=== PATIENT | male | born 1965 | race Caucasian/White ===

== ENCOUNTER 2022-05-05 08:07 | Observation (INO) ==
[2022-05-05] MEDS ORDERED: NS 0.9% 1000 ml BAG 1,000 ML IV ONE (08:37)
[2022-05-05] MEDS ORDERED: Magnesium Hydroxide LIQ 30 ML UDC PO PRN (10:34)
[2022-05-05] MEDS ORDERED: Ondansetron 4 mg VIAL 2 MG/ML 2 ml VIAL IV PRN ×2 (10:34→19:11)
[2022-05-05] MEDS ORDERED: Lactulose 30 ml UDC PO PRN (10:34)
[2022-05-05] MEDS ORDERED: Ondansetron ODT 4 mg TAB 4 MG TAB PO PRN (10:34)
[2022-05-05] MEDS ORDERED: Morphine 2 MG/ML SYRINGE IV PRN (10:40)
[2022-05-05] MEDS ORDERED: ceFAZolin 1 GM ADVAN 1 GM in NS 0.9% 50 ML 50 ML IVPB SCH (11:00)
[2022-05-05 11:34] LABS: ABS Basophils 0.1 10^3/ul (0-0.2); ABS Lymphocytes 0.8 10^3/ul (1.0-4.8); ABS Monocytes 0.4 10^3/ul (0-0.8); ABS Neutrophils 9.6 10^3/ul (1.5-7.7); Eosinophil % 0.3 %; Hematocrit 34 % (42-52); Hemoglobin 11.5 g/dL (14.0-18.0); Lymphocyte % 7.2 %; Mean Corpuscular HGB Conc 34 g/dL (31-36); Mean Corpuscular Hemoglobin 30 pg (27-31); Mean Corpuscular Volume 89 fL (80-94); Mean Platelet Volume 7.9 fL (7.4-10.4); Platelet Count 197 10^3/uL (150-450); Red Blood Count 3.84 10^6 /uL (4.18-5.48); Red Cell Distribution Width 14 % (10-15); White Blood Count 10.9 10^3/uL (3.5-10.8)
[2022-05-05 11:43] LABS: INR 1.23 (0.86-1.15)
[2022-05-05 12:11] LABS: Albumin 4.1 g/dL (3.2-5.2); Albumin/Globulin Ratio 1.6 (1-3); Calcium 8.4 mg/dL (8.6-10.3); Globulin 2.6 g/dL (2-4); Potassium 4.2 mmol/L (3.5-5.0); Total Bilirubin 0.5 mg/dL (0.2-1.0); Total Protein 6.7 g/dL (6.4-8.9); eGFR CKD-EPI 112.5 (>60)
[2022-05-05] MEDS: Lactated Ringers 1000 ml BAG 1,000 ML IV SCH (13:52)
[2022-05-05] MEDS ORDERED: ceFAZolin 2 GM in NS PREMIX 2 GM/100 ML BAG IVPB ONE (15:41)
[2022-05-05] MEDS ORDERED: Dexamethasone IV 4 MG/ML VIAL 1 ml VIAL ONE (16:34)
[2022-05-05] MEDS ORDERED: Propofol 10 MG/ML 20 ML BTL ONE (16:34)
[2022-05-05] MEDS ORDERED: Ondansetron 4 mg VIAL 2 MG/ML 2 ml VIAL ONE (16:34)
[2022-05-05] MEDS ORDERED: Lidocaine 2% PF 5 ML VIAL ONE (16:34)
[2022-05-05] MEDS ORDERED: HYDROmorphone 0.5 MG/0.5 ML SYRINGE ONE (16:35)
[2022-05-05] MEDS ORDERED: Rocuronium 50 mg VIAL 10 mg/ml 5 ml VIAL (50 mg) ONE (16:35)
[2022-05-05] MEDS ORDERED: Bupivacaine 0.25% SDV 30 ML ONE (17:01)
[2022-05-05] MEDS ORDERED: Naloxone 0.4 mg VIAL 0.4 mg/ml 1 ml VIAL IV PRN (19:11)
[2022-05-05] MEDS ORDERED: HYDROmorphone 1 MG/1 ML SYRINGE IV PRN (19:11)
[2022-05-05] MEDS ORDERED: HYDROmorphone 1 MG/1 ML SYRINGE ONE (19:51)
[2022-05-05] MEDS: Magnesium Hydroxide LIQ 30 ML UDC PO SCH (21:26)
[2022-05-06] MEDS: ceFAZolin 1 GM ADVAN 1 GM in NS 0.9% 50 ML 50 ML IVPB SCH ×3 (02:10→17:53)
[2022-05-06 05:15] LABS: Hematocrit 29 % (42-52); Hemoglobin 9.7 g/dL (14.0-18.0); Mean Platelet Volume 8.2 fL (7.4-10.4); Platelet Count 194 10^3/uL (150-450)
[2022-05-06 05:33] LABS: Calcium 8.2 mg/dL (8.6-10.3); Potassium 4.4 mmol/L (3.5-5.0)
[2022-05-06] MEDS: Lactated Ringers 1000 ml BAG 1,000 ML IV SCH (05:51)
[2022-05-06] MEDS ORDERED: Dextrose 50% Syringe 50 ml 25 GM/50 ML SYRINGE IV PUSH PRN (07:58)
[2022-05-06] MEDS: Vitamin THERAPEUTIC TAB PO SCH (08:50)
[2022-05-06] MEDS: Magnesium Hydroxide LIQ 30 ML UDC PO SCH ×2 (08:50→21:56)
[2022-05-06] MEDS: Enoxaparin 30 MG/0.3 ML SYR SUBCUT SCH (12:45)
[2022-05-07 06:20] LABS: Hematocrit 28 % (42-52); Hemoglobin 9.6 g/dL (14.0-18.0); Platelet Count 178 10^3/uL (150-450)
[2022-05-07] MEDS: Magnesium Hydroxide LIQ 30 ML UDC PO SCH ×2 (09:23→21:39)
[2022-05-07] MEDS: Vitamin THERAPEUTIC TAB PO SCH (09:24)
[2022-05-07] MEDS: Enoxaparin 30 MG/0.3 ML SYR SUBCUT SCH (13:17)
[2022-05-08 05:12] LABS: Hematocrit 28 % (42-52); Hemoglobin 9.4 g/dL (14.0-18.0); Mean Platelet Volume 7.7 fL (7.4-10.4); Platelet Count 199 10^3/uL (150-450)
[2022-05-08] MEDS: Vitamin THERAPEUTIC TAB PO SCH (09:42)
[2022-05-08] MEDS: Magnesium Hydroxide LIQ 30 ML UDC PO SCH (09:47)
[2022-05-08] MEDS: Enoxaparin 30 MG/0.3 ML SYR SUBCUT SCH (14:40)
[2022-05-08 16:31] VITALS: BP 144/66
== END 2022-05-08 17:20 | disposition home or self-care (01) ==
LOC: ED 08:07 → EDHOLD 08:07 → SSU 12:32
PROVIDERS: ADMIT Orthopaedic Surgery Hand Surgery; ATTEND Orthopaedic Surgery Hand Surgery